=== PATIENT | male | born 1990 ===

== ENCOUNTER → 2023-10-08 | Outpatient (REF) | payer OTHER ==
[2023-10-08 14:20] LABS: SEMEN APPEARANCE OPAQUE (OPAQUE); SEMEN VISCOSITY LIQUID (LIQUID); SEMEN VOLUME 1.2 ml (2.0-5.0); SEMEN pH 8.5 (7.0-8.0); WBC CONCENTRATION <=1 M/ml (<=1 M/ml)
[2023-10-08 14:21] LABS: SPERM CONCENTRATION 43.5 M/ml (>=15.0)
== END ==
LOC: M LAB REF 14:11
PROVIDERS: ATTEND Physician Assistant
DX: Z31.448 Encounter for other genetic testing of male for procreative management (principal)